=== PATIENT | female | born 1945 | race African-American/Black ===

== ENCOUNTER 2016-08-01 08:28 | Inpatient (IN) | payer MEDICARE ==
[~2016-08-01] VITALS: Ht 182.9 cm; Wt 113.4 kg
[~2016-08-01 08:28] MED LIST: AMIODARONE HCL100 MG ORAL; AMIODARONE HCL400 M1 ORAL; BENAZEPRIL HCL40 MG ORAL; BENAZEPRIL HCL40 MG PO; FLOMAX0.4 MG ORAL; LASIX40 MG ORAL; LEVEMIR100 UNIT/1 SQ; METFORMIN HCL850 M1 PO; METOPROLOL TART50 M1 ORAL; NORCO 5-325 TA1 EACH ORAL; WARFARIN SODIUM5 MG ORAL; WARFARIN SODIUM5 MG PO; XARELTO10 MG ORAL
[2016-08-01] MEDS ORDERED: METOPROLOL TART50 M1 ORAL (09:07)
[2016-08-01] MEDS ORDERED: LISINOPRIL20 MG ORAL (09:07)
--- NOTE | 2016-08-01 09:14 | Emergency Room Report ---
History of Present Illness General Chief Complaint: Lower Extremity Injury Source: Patient Present Illness HPI Patient presents with complaints of left foot redness and ulcer She reports that she is let the foot go to [facility] health nurse had seen the patient today and sent to the ER pain is 3/10 She has noticed increased discharge from the area Denies any knee pain or pelvic pain Unknown regarding fever Denies any chest pain or shortness of breath Patient does have a history of diabetes Allergies: Coded Allergies: No Known Allergies (Verified , 12/22/10) Patient History Past Medical History: see triage record Pertinent Family History: none Last Menstrual Period: na Now: No Reviewed Nursing Documentation: PMH: Agreed, PSxH: Agreed Nursing Documentation-PMH Past Medical History: No History, Except For Hx Cardiac Problems: Yes - PE, A fib Hx Hypertension: Yes Hx Pacemaker: Yes Hx Diabetes: Yes Hx Cancer: No Hx Gastrointestinal Problems: Yes Hx Neurological Problems: Yes Hx Peripheral Neuropathy: Yes Hx Numbness: Yes Review of Systems All Other Systems: negative except mentioned in HPI Physical Exam Vital Signs Date Time Temp Pulse Resp B/P Pulse Ox O2 Delivery O2 Flow Rate FiO2 08/01/16 08:35 98.8 68 18 138/83 98 Room Air Sp02 EP Interpretation: reviewed, normal General Appearance: well appearing, no apparent distress Head: normocephalic, atraumatic Eyes: bilateral eye EOMI, bilateral eye PERRL ENT: hearing grossly normal, normal pharynx, TMs + canals normal, uvula midline Neck: full range of motion, supple, no meningismus, no bony tend Respiratory: lungs clear, normal breath sounds, no rhonchi, no respiratory distress, no retraction, no accessory muscle use Cardiovascular #1: normal peripheral pulses, regular rate, rhythm, no edema, no gallop, no JVD, no murmur Gastrointestinal: normal bowel sounds, non tender, soft, no mass, no organomegaly, non-distended, no guarding, no hernia, no pulsatile mass, no rebound Genitourinary: no CVA tenderness Musculoskeletal: other - Swelling and erythema noted to the left foot, patient is able to flex and extend at that area Neurologic: oriented x3, responsive, vice president planning III-XII nml as tested, motor strength/ tone normal, sensory intact Psychiatric: mood/affect normal Skin: other - Erythema and swelling to the left foot, open wound is noted to the base of the large toe, pulses are intact Lymphatic: other - Swelling to left foot and left leg Medical Decision Making Diagnostic Impression: Primary Impression: Diabetic foot infection Additional Impression: Diabetic foot ulcer ER Course Patient has aggressive intervention initiated IV hydration antibiotics Baseline blood work at this time are appropriate x-ray imaging shows questionable concerning findings for ostium of his And patient is admitted for further inpatient care Labs Test 08/01/16 09:21 White Blood Count 9.5 K/UL (4.8-10.8) Red Blood Count 3.48 M/UL (4.20-5.40) Hemoglobin 10.3 G/DL (12.0-16.0) Hematocrit 32.0 % (37.0-47.0) Mean Corpuscular Volume 92 FL (80-99) Mean Corpuscular Hemoglobin 29.6 PG (27.0-31.0) Mean Corpuscular Hemoglobin Concent 32.2 G/DL (32.0-36.0) Red Cell Distribution Width 12.8 % (11.6-14.8) Platelet Count 228 K/UL (150-450) Mean Platelet Volume 6.1 FL (6.5-10.1) Neutrophils (%) (Auto) 69.4 % (45.0-75.0) Lymphocytes (%) (Auto) 18.7 % (20.0-45.0) Monocytes (%) (Auto) 9.1 % (1.0-10.0) Eosinophils (%) (Auto) 1.6 % (0.0-3.0) Basophils (%) (Auto) 1.2 % (0.0-2.0) Sodium Level 140 mEQ/L (135-145) Potassium Level 4.1 mEQ/L (3.4-4.9) Chloride Level 100 mEQ/L (98-107) Carbon Dioxide Level 24 mEQ/L (20-30) Anion Gap 16 (5-15) Blood Urea Nitrogen 12 mg/dL (7-23) Creatinine 0.9 mg/dL (0.5-0.9) Estimat Glomerular Filtration Rate > 60 mL/min (>60) Glucose Level 74 mg/dL (74-106) Lactic Acid Level 0.90 mmol/L (0.66-2.22) Calcium Level 8.5 mg/dL (8.6-10.2) Total Bilirubin 0.8 mg/dL (0.0-1.2) Aspartate Amino Transf (AST/SGOT) 13 U/L (5-40) Alanine Aminotransferase (ALT/SGPT) 6 U/L (3-33) Alkaline Phosphatase 93 U/L (35-104) Creatine Kinase MB < 1.5 ng/mL (< 3.8) Total Protein 7.3 g/dL (6.6-8.7) Albumin 3.0 g/dL (3.5-5.2) Globulin 4.3 g/dL Albumin/Globulin Ratio 0.6 (1.0-2.7) Rhythm Strip Diag. Results EP Interpretation: yes Rate: 77 Rhythm: NSR, no PVC's, no ectopy Other X-Ray Diagnostic Results Other X-Ray Diagnostic Results : EP Interpretation: Yes Findings: no fractures, no dislocation, other - Soft tissue changes, questionable osteo-, questionable gas Number of Views: 3 - left foot Last Vital Signs Date Time Temp Pulse Resp B/P Pulse Ox O2 Delivery O2 Flow Rate FiO2 08/01/16 08:35 98.8 68 18 138/83 98 Room Air Status: improved Disposition: ADMITTED INPATIENT Condition: Serious Referrals: ERIN GIFFORD (PCP) SOPHIA WILKINS D.O. Aug 01, 2016 09:14
[2016-08-01] MEDS ORDERED: Vancomycin 1.5gm/D5W 300ml 300 ML IVPB ONE (09:15)
[2016-08-01 09:47] LABS: BASOPHILS % (AUTO) 1.2 % (0.0-2.0); EOSINOPHILS % (AUTO) 1.6 % (0.0-3.0); LYMPHOCYTES % (AUTO) 18.7 % (20.0-45.0); MEAN CORPUSCULAR HEMOGLOBIN 29.6 PG (27.0-31.0); MEAN CORPUSCULAR HGB CONC 32.2 G/DL (32.0-36.0); MEAN CORPUSCULAR VOLUME 92 FL (80-99); MEAN PLATELET VOLUME 6.1 FL (6.5-10.1); MONOCYTES % (AUTO) 9.1 % (1.0-10.0); NEUTROPHILS % (AUTO) 69.4 % (45.0-75.0); PLATELET COUNT 228 K/UL (150-450); RED BLOOD COUNT 3.48 M/UL (4.20-5.40); RED CELL DISTRIBUTION WIDTH 12.8 % (11.6-14.8); WHITE BLOOD COUNT 9.5 K/UL (4.8-10.8)
[2016-08-01 10:02] LABS: ALANINE AMINOTRANSFERASE 6 U/L (3-33); ALBUMIN/GLOBULIN RATIO 0.6 (1.0-2.7); ANION GAP 16 (5-15); ASPARTATE AMINO TRANSFERASE 13 U/L (5-40); CALCIUM 8.5 mg/dL (8.6-10.2); CARBON DIOXIDE 24 mEQ/L (20-30); CHLORIDE 100 mEQ/L (98-107); CREATININE 0.9 mg/dL (0.5-0.9); GLOMERULAR FILTRATION RATE > 60 mL/min (>60); HEMOLYSIS 14; POTASSIUM 4.1 mEQ/L (3.4-4.9); SODIUM 140 mEQ/L (135-145); TOTAL PROTEIN 7.3 g/dL (6.6-8.7)
[2016-08-01 10:12] LABS: CKMB < 1.5 ng/mL (< 3.8)
[2016-08-01 11:00] VITALS: BP 130/76
[2016-08-01 13:24] VITALS: BP 128/77
[2016-08-01 15:18] VITALS: BP 129/77
[2016-08-01 18:00] LABS: INR 2.4 (0.9-1.1); PROTHROMBIN TIME 25.4 SEC (9.30-11.50)
[2016-08-01] MEDS: metFORMIN 500mg tab ORAL SCH (19:06)
[2016-08-01] MEDS: Cefepime HCl 1 GM in D5W 55 ML IVPB SCH (19:53)
[2016-08-01 20:00] VITALS: BP 120/50
[2016-08-01] MEDS: Warfarin Sodium 7.5mg ORAL SCH (21:25)
[2016-08-01] MEDS: Metoprolol 50mg tab ORAL SCH (21:26)
[2016-08-01] MEDS: NovoLOG Insulin Flexpen SUBQ SCH (21:28)
[2016-08-01] MEDS: Vancomycin 1gm/D5W 250ml IVPB SCH ×2 (22:28)
[2016-08-01] MEDS: metroNIDAZOLE 500mg tab ORAL SCH (22:28)
--- NOTE | 2016-08-01 22:31 | Consultation ---
Consult Note Consult Note Patient is a 71 year old female with diabetic neuropathy and left plantar hallux ulcer. Patient states a history of large callus tissue at the area which she attempted to trim off herself. This resulted in bleeding and she noted increasing drainage in the following days which prompted her to present to the emergency room. She reports no current nausea, vomiting, fevers, or chills. Assessment/Plan 1. Diabetic foot ulcer. Left hallux malodorous and infected ulcer which probes to bone 2. Diabetic neuropathy - Patient was consented and an excisional bedside debridement was performed to the level of bone using a 15 blade - Aerobic and anaerobic cultures were obtained - Ordering left foot MRI - Vascular labs pending - Non weight bearing left foot - Continue antibiotics - Will continue to follow daily Zhang Vargas DPM Aug 01, 2016 22:31
[2016-08-02] VITALS (7 sets, daily range): BP systolic 117–151; BP diastolic 60–122
[2016-08-02] MEDS: metroNIDAZOLE 500mg tab ORAL SCH ×3 (05:37→22:17)
[2016-08-02] MEDS: NovoLOG Insulin Flexpen SUBQ SCH ×4 (06:14→20:54)
--- NOTE | 2016-08-02 06:48 | Consultation ---
DATE OF CONSULTATION: 08/01/2016 CARDIOLOGY CONSULTATION CONSULTING PHYSICIAN: Aron Barone M.D. REQUESTING PHYSICIAN: Paul Bui M.D. REASON FOR CONSULTATION: Foot ulcer in the setting of cardiac arrhythmias. HISTORY OF PRESENT ILLNESS: This is a 71-year-old female, known to me from prior care, who self treated a callus on her left foot several days ago and noted persistent drainage, warmth, and redness over the subsequent days with moderate amount of drainage today. She was referred to the emergency room by her home health nurse and admitted for further management. PAST MEDICAL HISTORY: 1. Paroxysmal atrial fibrillation, status post AV gail ablation. 2. Permanent pacemaker. 3. Hypertensive heart disease. 4. Chronic diastolic congestive heart failure. 5. Insulin-requiring diabetes mellitus. 6. Diabetic neuropathy. 7. Chronic kidney disease. 8. History of DVT and pulmonary embolus. 9. Recent abnormal mammogram. MEDICATIONS: Prior to admission reviewed and reconciled. SOCIAL HISTORY: Nonsmoker. No alcohol or substance abuse. FAMILY HISTORY: Notable for colon cancer. REVIEW OF SYSTEMS: The patient had a mammogram last week at [facility]. The right upper quadrant had new calcifications for which a stereotactic biopsy has been requested. The patient had an AV gail ablation due to incessant atrial tachyarrhythmias. She has a permanent pacemaker and is pacemaker dependent. She has had prior myocardial perfusion scans that revealed less than 10% for flow-limiting coronary disease. She is on chronic anticoagulation for cardioembolic prophylaxis. PHYSICAL EXAMINATION: GENERAL: The patient is a well developed and well nourished, no acute distress. VITAL SIGNS: Afebrile, blood pressure 138/83, pulse 68, and respirations 18. HEENT: Conjunctivae are pink. Oropharynx is clear. Mucous membranes moist. NECK: Supple. No jugular venous distention. LUNGS: Clear. BREASTS: Without palpable masses. CARDIAC: Regular rhythm and rate. Normal S1, paradoxically split S2. A 1/6 systolic apical murmur. ABDOMEN: Soft and nontender. EXTREMITIES: There is 1+ dependent edema. The left foot has a large ulcer in the distal first toe. There is purulent smell and drainage noted. Both dorsalis pedis and posterior tibialis pulses are palpable. LABORATORY DATA: Albumin 3.0. Sodium 140, potassium 4.1, bicarbonate 24, BUN 12, and creatinine 0.9. White count 9.5 and hemoglobin 10.3. X-ray of the left foot with soft tissue changes and possible bony abnormality as well as gas. IMPRESSION: 1. Foot ulcer and cellulitis, possible gas-forming organism, possible osteomyelitis. 2. Paroxysmal atrial fibrillation. 3. Permanent pacemaker. 4. Atrioventricular gail ablation. 5. Hypertensive heart disease. 6. Chronic diastolic congestive heart failure. 7. Insulin-requiring diabetes mellitus. 8. Diabetic neuropathy. 9. Chronic kidney disease. PLAN: The patient has been pancultured and started on broad-spectrum antibiotics. Podiatry consultation is pending for today with the treatment anticipated. Further diagnostic studies to evaluate for osteomyelitis. We will follow likely a bone scan as the patient cannot have an MRI due to her pacemaker. Noninvasive vascular studies of the lower extremities have been requested as well. We will follow. Aron Barone M.D. DR: Alicja JOB#: [id number] CC:
[2016-08-02 07:06] LABS: INR 2.5 (0.9-1.1); PROTHROMBIN TIME 25.8 SEC (9.30-11.50)
[2016-08-02 07:19] LABS: BASOPHILS % (AUTO) 0.7 % (0.0-2.0); EOSINOPHILS % (AUTO) 3.7 % (0.0-3.0); MEAN CORPUSCULAR HEMOGLOBIN 29.4 PG (27.0-31.0); MEAN CORPUSCULAR HGB CONC 32.1 G/DL (32.0-36.0); MEAN CORPUSCULAR VOLUME 92 FL (80-99); MEAN PLATELET VOLUME 6.5 FL (6.5-10.1); MONOCYTES % (AUTO) 8.3 % (1.0-10.0); NEUTROPHILS % (AUTO) 74.3 % (45.0-75.0); PLATELET COUNT 223 K/UL (150-450); RED BLOOD COUNT 3.29 M/UL (4.20-5.40); WHITE BLOOD COUNT 7.4 K/UL (4.8-10.8)
[2016-08-02 07:26] LABS: ALANINE AMINOTRANSFERASE 5 U/L (3-33); ALBUMIN/GLOBULIN RATIO 0.7 (1.0-2.7); ANION GAP 16 (5-15); ASPARTATE AMINO TRANSFERASE 12 U/L (5-40); CALCIUM 8.3 mg/dL (8.6-10.2); CARBON DIOXIDE 23 mEQ/L (20-30); CHLORIDE 101 mEQ/L (98-107); CREATININE 0.8 mg/dL (0.5-0.9); GLOMERULAR FILTRATION RATE > 60 mL/min (>60); HEMOLYSIS 2; MAGNESIUM 1.8 mg/dL (1.7-2.5); POTASSIUM 4.1 mEQ/L (3.4-4.9); SODIUM 140 mEQ/L (135-145); TOTAL PROTEIN 6.9 g/dL (6.6-8.7)
[2016-08-02] MEDS: Cefepime HCl 1 GM in D5W 55 ML IVPB SCH ×2 (09:14→20:54)
[2016-08-02] MEDS: metFORMIN 500mg tab ORAL SCH ×2 (09:14→18:08)
[2016-08-02] MEDS: Metoprolol 50mg tab ORAL SCH ×2 (09:15→20:53)
[2016-08-02] MEDS: Lisinopril 20mg tab ORAL SCH (09:15)
[2016-08-02] MEDS: Lactobacillus-GG tablet ORAL SCH ×3 (09:15→18:08)
[2016-08-02] MEDS: Vancomycin 1gm/D5W 250ml IVPB SCH ×4 (10:17→22:17)
[2016-08-02] MEDS ORDERED: NS 55ml IV ONE (16:07)
[2016-08-02] MEDS ORDERED: Tubing IV Secondary IV ONE (17:42)
[2016-08-02] MEDS: Warfarin Sodium 7.5mg ORAL SCH (18:08)
--- NOTE | 2016-08-02 19:07 | Consultation ---
DATE OF CONSULTATION: 08/02/2016 INFECTIOUS DISEASE CONSULTATION REFERRING PHYSICIAN: Aron Barone M.D. REASON FOR CONSULTATION: Diabetic foot ulcer. HISTORY OF PRESENTING ILLNESS: This is a 71-year-old lady with history of diabetes, hypertension and pacemaker placement who came in with left foot redness and ulcer on the plantar aspect with increasing drainage. She was seen by Podiatry and was to have found infected ulcer, which probes to the bone. An Infectious Diseases consultation has been obtained for antibiotics. PAST MEDICAL HISTORY: 1. History of diabetes. 2. History of hypertension. 3. Congestive heart failure. 4. Status post permanent pacemaker placement. 5. Atrial fibrillation status post ablation. 6. Diabetic neuropathy. 7. DVT. 8. Pulmonary embolism. MEDICATIONS: As an inpatient, the patient is on Tylenol, lisinopril, Lactobacillus, vancomycin, Flagyl, metoprolol, insulin, warfarin, cefepime and metformin. ALLERGIES: No known drug allergies. SOCIAL HISTORY: No history of smoking, alcohol, or drug use. FAMILY HISTORY: Notable for colon cancer. REVIEW OF SYSTEMS: Respiratory: No fever, chills, cough, shortness of breath, or chest pain. Cardiac: No chest pain. No palpitations. No dizziness. No syncope. Gastrointestinal: No nausea. No vomiting. No abdominal pain or diarrhea. Musculoskeletal: She denies any left foot pain, but has increasing drainage. PHYSICAL EXAMINATION: VITAL SIGNS: Temperature of 99.1 degrees, T-max of 99.1 degrees, pulse of 71, respiratory rate 15, blood pressure 122/60 and O2 saturation of 98%. HEENT: Pupils are equally reactive to light and accommodation. Mouth appears clean without thrush. NECK: Supple. No adenopathy. No JVD. CARDIOVASCULAR: Regular rate and rhythm. No murmurs. LUNGS: Clear to auscultation bilaterally. No crackles. No wheezes. ABDOMEN: Soft and nontender. No organomegaly. EXTREMITIES: No cyanosis. No clubbing. Edema noted bilaterally. The left foot plantar ulcer noted. LABORATORY AND DIAGNOSTIC DATA: White count 7.4, hemoglobin 9.7, hematocrit 30.2, MCV 92, and platelet count of 233,000 with neutrophils of 74%. Sodium 140, potassium 4.1, chloride 101, bicarbonate 23, BUN 12, creatinine 0.8 and glucose 123. Calcium 8.3. Total bilirubin 0.6. AST 12, ALT 5 and alkaline phosphatase 100. Total protein 6.9. Albumin of 3.9. Wound cultures are pending. MRI has been ordered. ASSESSMENT: 1. This is a 71-year-old lady with history of diabetes and hypertension, who comes in with a left foot ulcer with drainage with a probe going deep to the bone, would be concern regarding underlying osteomyelitis. 2. Atrial fibrillation. 3. Diabetes. PLAN: 1. Continue vancomycin and Flagyl. 2. Continue cefepime. 3. We will follow up cultures and adjust antibiotics accordingly. I would like to thank, Dr. Aron Barone, for this consultation. Riky Shaikh M.D. DR: GAUTAM JOB#: [id number] CC: Aron Barone M.D.
--- NOTE | 2016-08-02 20:28 | Consultation ---
DATE OF CONSULTATION: 08/01/2016 PODIATRY CONSULTATION CONSULTING PHYSICIAN: Zhang Vargas D.P.M. covering from Chaz Lira D.P.M. REQUESTING PHYSICIAN: Paul Bui M.D. REASON FOR CONSULTATION: Infected left foot ulcer. HISTORY OF PRESENT ILLNESS: The patient is a 71-year-old female with diabetic neuropathy and left plantar hallux ulcer. The patient has history of large callus tissue at the area which she attempted to trim off herself, this resulted in bleeding and she noted increased drainage in the following days which prompted her to present to the emergency room. She reports no current nausea, vomiting, fever, or chills. PAST MEDICAL HISTORY: 1. Diabetic neuropathy. 2. Diabetes. 3. Chronic kidney disease. 4. Atrial fibrillation. 5. Hypertension. 6. History of pulmonary embolism and deep venous thrombosis. 7. Congestive heart failure. ANTIBIOTICS: Vancomycin, metronidazole, cefepime. SOCIAL HISTORY: The patient does not smoke or drink alcohol. FAMILY HISTORY: Notable for colon cancer. PHYSICAL EXAMINATION: VITAL SIGNS: On 08/01/2016, temperature 98.4 degrees, pulse 69, respiratory rate 16, blood pressure 130/76, O2 saturation 99% on room air. DERMATOLOGICAL: Left plantar hallux with full thickness foot ulcer. Malodor present. The wound probes proximally and laterally and communicates with a second wound on the lateral aspect of the hallux. Abscess formation, probes to bone, surrounding erythema and edema. Right foot with callus formation of the plantar hallux and first metatarsal head. NEUROLOGIC: Decreased sensation to light touch. VASCULAR: Left foot with erythema and edema at the forefoot. Pedal pulses are lightly palpable. MUSCULOSKELETAL: Full muscle strength noted. LABORATORY AND DIAGNOSTIC DATA: On 08/01/2016, white blood count of 9.5, red blood cell count 3.48, hemoglobin 10.3, and hematocrit 32.0, and neutrophils 69.4. ASSESSMENT: 1. Left foot cellulitis secondary to left hallux malodorous and infected ulcer which probes the bone. 2. Diabetic neuropathy. 3. Chronic kidney disease. 4. Congestive heart failure. 5. Atrial fibrillation. 6. Hypertension. 7. History of deep venous thrombosis and pulmonary embolism. PLAN: 1. The patient was consented and bedside excisional wound debridement was performed to the level of bone using 15-blade. 2. Aerobic and anaerobic cultures were obtained. 3. Ordering bone scan. 4. Vascular labs are pending. Followup results. 5. Nonweightbearing left foot. 6. Continue IV antibiotics. We will continue to follow daily. Zhang Vargas DPM DR: Nora JOB#: [id number] CC: KOLBY
--- NOTE | 2016-08-02 21:38 | Podiatric Progress Note ---
Assessment/Plan Patient Faith White is a 71 year old female who was admitted on Aug 01, 2016 at 09: 41 with left foot infected ulcer Problems: (1) Diabetic foot infection (2) Osteomyelitis of ankle or foot, acute (3) Diabetic foot ulcer Assessment/Plan Assessment: 1. Left foot infected ulcer that probes to bone. Patient is afebrile and without leukocytosis 2. diabetic neuropathy Plan: 1. Patient is one day status post bedside debridement. There is some improvement in the erythema and edema at the hallux 2. Bone scan is ordered 3. Cultures obtained yesterday. Will follow up final results 4. Continue antibiotics per infectious disease specialist recommendations 5. Non weight bearing on left foot Subjective Reason for consult Left hallux infected ulcer Allergies: Coded Allergies: No Known Allergies (Verified , 12/22/10) Subjective Patient states she is doing well with no pain, nausea, vomiting, fevers, or chills. Objective Exam Last 24 Hour Vital Signs Date Time Temp Pulse Resp B/P Pulse Ox O2 Delivery O2 Flow Rate FiO2 08/02/16 20:53 72 140/83 08/02/16 19:00 97.3 72 20 140/83 98 Room Air 08/02/16 16:00 97.2 70 20 148/82 99 Room Air 08/02/16 12:00 98.1 79 16 151/95 97 Room Air 08/02/16 09:15 71 122/60 08/02/16 09:15 122/60 08/02/16 07:45 99.1 71 15 122/60 98 Room Air 08/02/16 04:00 98.2 90 18 117/72 98 Room Air 08/02/16 00:00 97.6 70 18 150/84 99 Room Air Laboratory Tests Test 08/02/16 05:15 08/02/16 20:55 White Blood Count 7.4 K/UL (4.8-10.8) Red Blood Count 3.29 M/UL (4.20-5.40) L Hemoglobin 9.7 G/DL (12.0-16.0) L Hematocrit 30.2 % (37.0-47.0) L Mean Corpuscular Volume 92 FL (80-99) Mean Corpuscular Hemoglobin 29.4 PG (27.0-31.0) Mean Corpuscular Hemoglobin Concent 32.1 G/DL (32.0-36.0) Red Cell Distribution Width 13.0 % (11.6-14.8) Platelet Count 223 K/UL (150-450) Mean Platelet Volume 6.5 FL (6.5-10.1) Neutrophils (%) (Auto) 74.3 % (45.0-75.0) Lymphocytes (%) (Auto) 13.0 % (20.0-45.0) L Monocytes (%) (Auto) 8.3 % (1.0-10.0) Eosinophils (%) (Auto) 3.7 % (0.0-3.0) H Basophils (%) (Auto) 0.7 % (0.0-2.0) Prothrombin Time 25.8 SEC (9.30-11.50) H Prothromb Time International Ratio 2.5 (0.9-1.1) H Sodium Level 140 mEQ/L (135-145) Potassium Level 4.1 mEQ/L (3.4-4.9) Chloride Level 101 mEQ/L (98-107) Carbon Dioxide Level 23 mEQ/L (20-30) Anion Gap 16 (5-15) H Blood Urea Nitrogen 12 mg/dL (7-23) Creatinine 0.8 mg/dL (0.5-0.9) Estimat Glomerular Filtration Rate > 60 mL/min (>60) Glucose Level 123 mg/dL (74-106) H Calcium Level 8.3 mg/dL (8.6-10.2) L Magnesium Level 1.8 mg/dL (1.7-2.5) Total Bilirubin 0.6 mg/dL (0.0-1.2) Aspartate Amino Transf (AST/SGOT) 12 U/L (5-40) Alanine Aminotransferase (ALT/SGPT) 5 U/L (3-33) Alkaline Phosphatase 100 U/L (35-104) Total Protein 6.9 g/dL (6.6-8.7) Albumin 3.0 g/dL (3.5-5.2) L Globulin 3.9 g/dL Albumin/Globulin Ratio 0.7 (1.0-2.7) L Thyroid Stimulating Hormone (TSH) 2.120 uIU/mL (0.300-4.500) Vancomycin Level Trough Pending Microbiology Date/Time Source Procedure Growth Status 08/01/16 23:00 Foot Left Gram Stain - Final Resulted 08/01/16 23:00 Foot Left Wound Culture Pending Resulted Exam Narrative Left plantar hallux ulcer with mild improvement in erythema and edema surrounding the wound. No purulence or malodor noted today. Wound probes to bone. Dermatological Wound Assessment : Exudate Amount: Scant Zhang Vargas DPM Aug 02, 2016 21:38
--- NOTE | 2016-08-02 23:47 | History and Physical Report ---
DATE OF ADMISSION: 08/01/2016 CHIEF COMPLAINT: Left foot osteomyelitis. HISTORY OF PRESENT ILLNESS: The patient is a very pleasant 71-year-old female, well known to me. She has a history of hypertension, diabetes, conduction system disease status post pacemaker, diastolic congestive heart failure, history of DVT and PE. She presented with complaints of left foot pain. According to the patient, she has a history of a callus on the left foot. Four days prior to admission, the callus started to tear off and she eventually cut the rest of the callus off. There is a large wound on the bottom of the foot. It became painful and she presented to the emergency room, there she was diagnosed with a diabetic ulcer and wound infection. She has been started on IV antibiotic therapy and is now admitted for further evaluation and care. PAST MEDICAL HISTORY: As above. PAST SURGICAL HISTORY: Includes a history of pacemaker. CURRENT MEDICATIONS: Reconciled and reviewed. ALLERGIES: None. SOCIAL HISTORY: Negative for tobacco, ethanol, or drugs. FAMILY HISTORY: None. REVIEW OF SYSTEMS: General: No fever or chills. HEENT: No headaches or visual changes. Cardiopulmonary: No chest pain or shortness of breath. Gastrointestinal: No nausea or vomiting. Genitourinary: No urgency or frequency. Musculoskeletal: No joint pain or swelling. Neurologic: No evidence of seizures. PHYSICAL EXAMINATION: VITAL SIGNS: Temperature is 98 degrees, blood pressure 136/70, pulse of 80, respirations 20. GENERAL: The patient is a well-developed female no apparent distress. HEART: Regular rate and rhythm. LUNGS: Clear. ABDOMEN: Soft, nontender, nondistended. EXTREMITIES: Without clubbing, cyanosis. Left foot, at the base has a ulceration about 3 cm. It is warm and red. There is some purulent discharge noted. LABORATORY DATA: White count was 10, hemoglobin 10, and hematocrit 32, platelets 228,000. INR was 2.5 Sodium 140, potassium 4.1, BUN 12, creatinine 0.9. ASSESSMENT: This is a pleasant female admitted with diabetic foot ulcer. 1. Diabetic foot ulcer. 2. History of congestive heart failure. 3. Hypertension. 4. Diabetes. 5. Conduction system disease status post pacemaker. 6. Pulmonary embolism. 7. Deep venous thrombosis. PLAN: 1. Intravenous antibiotics. 2. Followup cultures. 3. Check a bone scan to rule out osteomyelitis. 4. ID, Cardiology, and Podiatry consultation to be obtained. Paul Bui M.D. DR: Ambika JOB#: [id number] CC:
[2016-08-03] VITALS: BP 130/77
[2016-08-03 04:00] VITALS: BP 136/78
--- NOTE | 2016-08-03 04:37 | Progress Note ---
DATE: 08/02/2016 CARDIOLOGY PROGRESS NOTE SUBJECTIVE: The patient has no pain. Her foot remains with dressing in place and status post debridement yesterday. The patient has a pacemaker. She could not have an MRI performed to evaluate for osteomyelitis. OBJECTIVE: VITAL SIGNS: Blood pressure 148/82, pulse 70, respirations 20, and afebrile. NECK: Supple. LUNGS: Clear. CARDIAC: Regular rhythm and rate. Normal S1, paradoxically split S2. A 1/6 systolic murmur at apex. ABDOMEN: Soft and nontender. EXTREMITIES: With trace edema. Left foot dressing in place. IMPRESSION: 1. Diabetic foot ulcer, microvascular peripheral artery disease. 2. Atrioventricular gail ablation. 3. Paroxysmal atrial fibrillation. 4. Permanent pacemaker with pacemaker dependency. 5. Warfarin-associated coagulopathy. 6. Insulin-requiring diabetes mellitus. PLAN: 1. Followup noninvasive vascular study. 2. Continue antibiotics and wound care. 3. Bone scan will be considered to evaluate for osteomyelitis. 4. Warfarin to INR of 2 to 3. 5. Continue current cardiovascular regimen otherwise without change. Aron Barone M.D. DR: FREDI JOB#: [id number] CC:
[2016-08-03] MEDS: metroNIDAZOLE 500mg tab ORAL SCH ×3 (06:31→22:48)
[2016-08-03] MEDS: NovoLOG Insulin Flexpen SUBQ SCH ×4 (06:33→21:51)
[2016-08-03 07:05] LABS: INR 2.6 (0.9-1.1); PROTHROMBIN TIME 27.7 SEC (9.30-11.50)
[2016-08-03 08:09] VITALS: BP 135/76
--- NOTE | 2016-08-03 08:30 | Diagnostic Imaging Report ---
Indications: Left foot pain, infection, diabetes Technique: 3 views left foot Findings: Comparison: None Soft tissues of the hallux are swollen with gas-filled defect in its plantar aspect. No underlying fracture, dislocation, lytic destruction, periosteal reaction, or other acute changes are identified. Solid, multilobulated periosteal new bone formation is present along the diaphyses of multiple metatarsals. Prominent spurs emanate from the plantar and posterior aspects of the calcaneus in from the dorsal margins of the mid tarsal and tarsometatarsal joints. IMPRESSION: Left hallux soft tissue swelling with ulcer. No evidence of underlying osteomyelitis. Early osteomyelitis may be radiographically occult, however. MRI or nuclear medicine three-phase bone scan should be considered for more sensitive evaluation. Chronic appearing periosteal new bone formation multiple metatarsal diaphyses, nonspecific, may be secondary to chronic biomechanical stresses or reactive to chronic inflammation. Calcaneal enthesophytes Mid tarsal and tarsometatarsal degenerative arthropathy
[2016-08-03] MEDS: Lactobacillus-GG tablet ORAL SCH ×3 (09:01→18:23)
[2016-08-03] MEDS: metFORMIN 500mg tab ORAL SCH ×2 (09:01→18:23)
[2016-08-03] MEDS: Cefepime HCl 1 GM in D5W 55 ML IVPB SCH ×2 (09:02→21:49)
[2016-08-03] MEDS: Lisinopril 20mg tab ORAL SCH (09:02)
[2016-08-03] MEDS: Metoprolol 50mg tab ORAL SCH ×2 (09:02→21:59)
--- NOTE | 2016-08-03 10:45 | General Progress Note ---
Assessment/Plan Problem List: (1) Atrial fibrillation ICD Codes: I48.91 - Unspecified atrial fibrillation SNOMED: 55527584 (2) Diabetic foot infection ICD Codes: E11.69 - Type 2 diabetes mellitus with other specified complication ; L08.9 - Local infection of the skin and subcutaneous tissue, unspecified SNOMED: 377966730, 26414304 (3) Diabetic foot ulcer ICD Codes: E11.621 - Type 2 diabetes mellitus with foot ulcer; L97.509 - Non- pressure chronic ulcer of other part of unspecified foot with unspecified severity SNOMED: 916470814, [id number] Status: stable, progressing Assessment/Plan iv abx follow up cultures follow up bone scan. wound care cont cardiac rx Subjective ROS Limited/Unobtainable: No Constitutional: Reports: no symptoms HEENT: Reports: no symptoms Cardiovascular: Reports: no symptoms Respiratory: Reports: no symptoms Gastrointestinal/Abdominal: Reports: no symptoms Genitourinary: Reports: no symptoms Neurologic/Psychiatric: Reports: no symptoms Endocrine: Reports: no symptoms Hematologic/Lymphatic: Reports: no symptoms Allergies: Coded Allergies: No Known Allergies (Verified , 12/22/10) All Systems: reviewed and negative except above Subjective no events. w/o complaints. denies pain. on iv abx. bone scan completed. no results back yet Objective Last 24 Hour Vital Signs Date Time Temp Pulse Resp B/P Pulse Ox O2 Delivery O2 Flow Rate FiO2 08/03/16 09:02 70 135/76 08/03/16 09:02 135/76 08/03/16 08:09 98.2 70 16 135/76 99 Nasal Cannula 08/03/16 04:00 97.7 70 20 136/78 98 Room Air 08/03/16 00:00 97.3 70 20 130/77 98 Room Air 08/02/16 20:53 72 140/83 08/02/16 19:00 97.3 72 20 140/83 98 Room Air 08/02/16 16:00 97.2 70 20 148/82 99 Room Air 08/02/16 12:00 98.1 79 16 151/95 97 Room Air Intake and Output 08/02/16 08/03/16 19:00 07:00 Intake Total 1405 ml 240 ml Balance 1405 ml 240 ml Intake Oral 1100 ml 240 ml IV Total 305 ml # Voids 2 7 Laboratory Tests 08/02/16 20:55: Vancomycin Level Trough 12.3H 08/03/16 06:00: Prothrombin Time 27.7H, Prothromb Time International Ratio 2.6H Height (Feet): 6 Height (Inches): 0.00 Weight (Pounds): 250 General Appearance: WD/WN, alert Neck: supple Cardiovascular: regular rhythm Respiratory/Chest: lungs clear Abdomen: normal bowel sounds, non tender, soft, no organomegaly Edema: no edema noted Arm (L), no edema noted Arm (R), no edema noted Leg (L), no edema noted Leg (R), no edema noted Pedal (L), no edema noted Pedal (R), no edema noted 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
--- NOTE | 2016-08-03 11:35 | Infectious Diseases Prog Note ---
"Assessment/Plan Assessment/Plan antibiotics : vancomycin iv, cefepime, flagyl A 1. left foot ulcer with gram negative rods | likely osteomyelitis 2. DM 3. HTN P 1. continue vancomycin iv, cefepime, flagyl 2. will follow up cultures, bone scan Subjective Constitutional: Denies: chills, fever Respiratory: Denies: dry cough, shortness of breath Gastrointestinal/Abdominal: Denies: diarrhea, nausea, vomiting Musculoskeletal: Denies: pain Allergies: Coded Allergies: No Known Allergies (Verified , 12/22/10) Objective Vital Signs Last 24 Hour Vital Signs Date Time Temp Pulse Resp B/P Pulse Ox O2 Delivery O2 Flow Rate FiO2 08/03/16 09:02 70 135/76 08/03/16 09:02 135/76 08/03/16 08:09 98.2 70 16 135/76 99 Nasal Cannula 08/03/16 04:00 97.7 70 20 136/78 98 Room Air 08/03/16 00:00 97.3 70 20 130/77 98 Room Air 08/02/16 20:53 72 140/83 08/02/16 19:00 97.3 72 20 140/83 98 Room Air 08/02/16 16:00 97.2 70 20 148/82 99 Room Air 08/02/16 12:00 98.1 79 16 151/95 97 Room Air Height (Feet): 6 Height (Inches): 0.00 Weight (Pounds): 250 Respiratory/Chest: lungs clear Cardiovascular: normal rate, regular rhythm, no gallop/murmur Abdomen: soft, non tender Extremities: no edema, other - left foot plantar ulcer Microbiology Date/Time Source Procedure Growth Status 08/01/16 09:21 Blood Blood Culture - Preliminary NO GROWTH AFTER 24 HOURS Resulted 08/01/16 09:21 Blood Blood Culture - Preliminary NO GROWTH AFTER 24 HOURS Resulted 08/01/16 23:00 Foot Left Gram Stain - Final Resulted 08/01/16 23:00 Wound Culture - Preliminary Gram Negative Bacillus 1 Resulted Laboratory Tests Test 08/02/16 20:55 08/03/16 06:00 Vancomycin Level Trough 12.3 ug/mL (5.0-12.0) H Prothrombin Time 27.7 SEC (9.30-11.50) H Prothromb Time International Ratio 2.6 (0.9-1.1) H LISA BERNARD Aug 03, 2016 11:35"
[2016-08-03 11:54] VITALS: BP 146/83
--- NOTE | 2016-08-03 12:05 | Diagnostic Imaging Report ---
Indications: Diabetic ulcer plantar surface left hallux Technique: 21.3 mCi 99M technetium-MDP administered intravenously. Planar imaging of the distal legs and feet performed in immediate serial blood flow, immediate static blood pool (multi-planar), and 3 hour delayed (multiplanar) phases. Findings: Comparison: Left foot radiographs 08/01/2016 Blood flow, pool, and delayed images demonstrate diffusely increased activity throughout the distal aspect of left leg and left foot with superimposed focal increased activity in the left hallux. On delayed images, this localizes throughout the left first distal and proximal phalanges, head of left first metatarsal. Small focus of mildly increased activity is present in the left fifth toe on delayed imaging with only questionable increased activity on blood pool and no obvious focal hyperemia on blood flow images. IMPRESSION: Findings compatible with acute osteomyelitis involving the left first metatarsal head, entire left first proximal and distal phalanges Mild focal increased activity left fifth toe on delayed imaging, may be degenerative. Correlate clinically.
[2016-08-03] MEDS: Vancomycin 1gm/D5W 250ml IVPB SCH ×4 (12:15→22:48)
--- NOTE | 2016-08-03 13:50 | Podiatric Progress Note ---
Assessment/Plan Patient Faith White is a 71 year old female who was admitted on Aug 01, 2016 at 09: 41 with left foot infected ulcer and cellulitis Problems: (1) Osteomyelitis of ankle or foot, acute (2) Diabetic foot infection (3) Diabetic foot ulcer Assessment/Plan - Discussed surgical intervention with the patient. She is not amenable at this time - Continue 6 weeks of IV antibiotics and local wound care. Culture growing gram negative bacillus - Start packing the wound with 1/4 inch packing gauze, cover with adaptic, 4x4 gauze, and jeffrey - Non weight bearing on left forefoot. Okay for patient to walk on heel. Will need offloaded diabetic shoe as an outpatient Subjective Reason for consult Left hallux infected ulcer and cellulitis Allergies: Coded Allergies: No Known Allergies (Verified , 12/22/10) Subjective Patient states she feels well with no reports of nausea, vomiting, fevers, or chills Objective Exam Last 24 Hour Vital Signs Date Time Temp Pulse Resp B/P Pulse Ox O2 Delivery O2 Flow Rate FiO2 08/03/16 11:54 97.5 71 15 146/83 97 Room Air 08/03/16 09:02 70 135/76 08/03/16 09:02 135/76 08/03/16 08:09 98.2 70 16 135/76 99 Nasal Cannula 08/03/16 04:00 97.7 70 20 136/78 98 Room Air 08/03/16 00:00 97.3 70 20 130/77 98 Room Air 08/02/16 20:53 72 140/83 08/02/16 19:00 97.3 72 20 140/83 98 Room Air 08/02/16 16:00 97.2 70 20 148/82 99 Room Air Laboratory Tests Test 08/02/16 20:55 08/03/16 06:00 Vancomycin Level Trough 12.3 ug/mL (5.0-12.0) H Prothrombin Time 27.7 SEC (9.30-11.50) H Prothromb Time International Ratio 2.6 (0.9-1.1) H Microbiology Date/Time Source Procedure Growth Status 08/01/16 09:21 Blood Blood Culture - Preliminary NO GROWTH AFTER 24 HOURS Resulted 08/01/16 23:00 Foot Left Gram Stain - Final Resulted 08/01/16 23:00 Wound Culture - Preliminary Gram Negative Bacillus 1 Resulted Exam Narrative Left hallux with improving erythema and edema. Patient's ulcer probes to bone as well as proximally and laterally. The lateral aspect of the wound tunnels to another small wound on the lateral side of the hallux. Draining moderate amounts of serosanguinous drainage. Malodor still present but it has improved since admission. BONE SCAN 08/03/15: Procedure: NM Bone Scan 3-Phase Indications: Diabetic ulcer plantar surface left hallux Technique: 21.3 mCi 99M technetium-MDP administered intravenously. Planar imaging of the distal legs and feet performed in immediate serial blood flow, immediate static blood pool (multi-planar), and 3 hour delayed (multiplanar) phases. Findings: Comparison: Left foot radiographs 08/01/2016 Blood flow, pool, and delayed images demonstrate diffusely increased activity throughout the distal aspect of left leg and left foot with superimposed focal increased activity in the left hallux. On delayed images, this localizes throughout the left first distal and proximal phalanges, head of left first metatarsal. Small focus of mildly increased activity is present in the left fifth toe on delayed imaging with only questionable increased activity on blood pool and no obvious focal hyperemia on blood flow images. IMPRESSION: Findings compatible with acute osteomyelitis involving the left first metatarsal head, entire left first proximal and distal phalanges Mild focal increased activity left fifth toe on delayed imaging, may be degenerative. Correlate clinically. Zhang Vargas DPM Aug 03, 2016 13:50
[2016-08-03 16:42] VITALS: BP 136/65
[2016-08-03] MEDS: Warfarin Sodium 7.5mg ORAL SCH (18:31)
[2016-08-03 20:00] VITALS: BP 149/79
[2016-08-04] VITALS: BP 132/74
[2016-08-04 04:00] VITALS: BP 145/79
[2016-08-04] MEDS: metroNIDAZOLE 500mg tab ORAL SCH ×3 (06:14→22:13)
[2016-08-04] MEDS: NovoLOG Insulin Flexpen SUBQ SCH ×4 (06:18→21:00)
--- NOTE | 2016-08-04 07:26 | General Progress Note ---
Assessment/Plan Problem List: (1) Atrial fibrillation ICD Codes: I48.91 - Unspecified atrial fibrillation SNOMED: [id number] (2) Diabetic foot infection ICD Codes: E11.69 - Type 2 diabetes mellitus with other specified complication ; L08.9 - Local infection of the skin and subcutaneous tissue, unspecified SNOMED: 199589484, 67681119 (3) Diabetic foot ulcer ICD Codes: E11.621 - Type 2 diabetes mellitus with foot ulcer; L97.509 - Non- pressure chronic ulcer of other part of unspecified foot with unspecified severity SNOMED: 762238151, 08612337 Status: stable, progressing Assessment/Plan iv abx per ID follow up cultures picc line wound care cont cardiac rx Subjective ROS Limited/Unobtainable: No Constitutional: Reports: no symptoms HEENT: Reports: no symptoms Cardiovascular: Reports: no symptoms Respiratory: Reports: no symptoms Gastrointestinal/Abdominal: Reports: no symptoms Genitourinary: Reports: no symptoms Neurologic/Psychiatric: Reports: no symptoms Endocrine: Reports: no symptoms Hematologic/Lymphatic: Reports: no symptoms Allergies: Coded Allergies: No Known Allergies (Verified , 12/22/10) All Systems: reviewed and negative except above Subjective no events. w/o complaints. denies pain. on iv abx. bone scan positive for osteomyelitis Objective Last 24 Hour Vital Signs Date Time Temp Pulse Resp B/P Pulse Ox O2 Delivery O2 Flow Rate FiO2 08/04/16 04:00 97.7 70 20 145/79 97 Room Air 08/04/16 00:00 97.9 70 20 132/74 98 Room Air 08/03/16 21:59 71 149/79 08/03/16 20:00 97.5 71 17 149/79 98 Room Air 08/03/16 16:42 98.2 70 14 136/65 98 Room Air 08/03/16 11:54 97.5 71 15 146/83 97 Room Air 08/03/16 09:02 70 135/76 08/03/16 09:02 135/76 08/03/16 08:09 98.2 70 16 135/76 99 Nasal Cannula Intake and Output 08/03/16 08/04/16 19:00 07:00 Intake Total 1905 ml 935 ml Balance 1905 ml 935 ml Intake Oral 1600 ml 630 ml IV Total 305 ml 305 ml # Voids 4 4 # Bowel Movements 1 Laboratory Tests 1/15/17 04:55: Prothrombin Time [Pending], Prothromb Time International Ratio [Pending] Height (Feet): 6 Height (Inches): 0.00 Weight (Pounds): 250 Objective General Appearance: WD/WN, alert Neck: supple Cardiovascular: regular rhythm Respiratory/Chest: lungs clear Abdomen: normal bowel sounds, non tender, soft, no organomegaly Edema: no edema noted Arm (L), no edema noted Arm (R), no edema noted Leg (L), no edema noted Leg (R), no edema noted Pedal (L), no edema noted Pedal (R), no edema noted 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
[2016-08-04 08:01] VITALS: BP 151/79
[2016-08-04] MEDS: Lisinopril 20mg tab ORAL SCH (08:05)
[2016-08-04] MEDS: Metoprolol 50mg tab ORAL SCH ×2 (08:05→22:13)
[2016-08-04] MEDS: Lactobacillus-GG tablet ORAL SCH ×3 (08:06→17:10)
[2016-08-04] MEDS: metFORMIN 500mg tab ORAL SCH ×2 (08:06→17:10)
[2016-08-04] MEDS: Cefepime HCl 1 GM in D5W 55 ML IVPB SCH (08:06)
[2016-08-04 08:35] LABS: INR 2.8 (0.9-1.1); PROTHROMBIN TIME 29.8 SEC (9.30-11.50)
[2016-08-04] MEDS: Vancomycin 1gm/D5W 250ml IVPB SCH ×4 (10:07→22:13)
--- NOTE | 2016-08-04 10:19 | Infectious Diseases Prog Note ---
Assessment/Plan Assessment/Plan A: Osteomyelitis of first left metatarsal DM HPN Anemia P: continue Vancomycin & Flagyl change Cefepime to Rocephin Subjective ROS Limited/Unobtainable: No Respiratory: Reports: no symptoms Cardiovascular: Reports: no symptoms Genitourinary: Reports: no symptoms Musculoskeletal: Reports: no symptoms Allergies: Coded Allergies: No Known Allergies (Verified , 12/22/10) Objective Vital Signs Last 24 Hour Vital Signs Date Time Temp Pulse Resp B/P Pulse Ox O2 Delivery O2 Flow Rate FiO2 08/04/16 08:05 70 151/79 08/04/16 08:05 151/79 08/04/16 08:01 97.7 70 14 151/79 100 Room Air 08/04/16 04:00 97.7 70 20 145/79 97 Room Air 08/04/16 00:00 97.9 70 20 132/74 98 Room Air 08/03/16 21:59 71 149/79 08/03/16 20:00 97.5 71 17 149/79 98 Room Air 08/03/16 16:42 98.2 70 14 136/65 98 Room Air 08/03/16 11:54 97.5 71 15 146/83 97 Room Air Height (Feet): 6 Height (Inches): 0.00 Weight (Pounds): 250 General Appearance: no acute distress HEENT: mucous membranes moist Respiratory/Chest: lungs clear Cardiovascular: normal rate Abdomen: soft, non tender Extremities: no edema Skin: ulcers, other - left big toe, foul smelling Neurologic/Psychiatric: alert, oriented x 3, responsive Microbiology Date/Time Source Procedure Growth Status 08/01/16 23:00 Foot Left Gram Stain - Final Resulted 08/01/16 23:00 Wound Culture - Preliminary Proteus Mirabilis Staphylococcus Sp Coag Neg Resulted Laboratory Tests Test 08/04/16 04:55 Prothrombin Time 29.8 SEC (9.30-11.50) H Prothromb Time International Ratio 2.8 (0.9-1.1) H Current Medications Medications (Trade) Dose Ordered Sig/Kaden Route PRN Reason Start Time Stop Time Status Last Admin Dose Admin Acetaminophen (Tylenol) 650 mg Q4H PRN ORAL Mild Pain/Temp > 100.5 08/02/16 11:30 09/01/16 11:29 08/02/16 12:19 Cefepime HCl/ Dextrose (Maxipime/D5W 50ml) 55 ml @ 110 mls/hr EVERY 12 HOURS IVPB 08/01/16 19:00 08/08/16 18:59 08/04/16 08:06 Dextrose STAT PRN IV Hypoglycemia 08/01/16 17:00 08/31/16 16:59 Heparin Sodium/ Sodium Chloride (Heparin 2000 units/Ns 1000ml premix) 2,000 unit ONCE ONCE INJ 08/04/16 07:30 08/04/16 07:31 UNV Insulin Aspart (NovoLOG) BEFORE MEALS AND HS SUBQ 08/01/16 21:00 08/31/16 20:59 08/04/16 06:18 Lactobacillus Acidophilus (Culturelle) 1 tab THREE TIMES A DAY ORAL 08/02/16 09:00 09/01/16 08:59 08/04/16 08:06 Lidocaine HCl (Xylocaine 1% 30ml) 30 ml ONCE ONCE INJ 08/04/16 07:30 08/04/16 07:31 UNV Lisinopril (Prinivil) 20 mg DAILY ORAL 08/02/16 09:00 09/01/16 08:59 08/04/16 08:05 Metformin HCl (Glucophage) 1,000 mg BID ORAL 08/01/16 18:00 08/31/16 17:59 08/04/16 08:06 Metoprolol Tartrate (Lopressor) 50 mg Q12HR ORAL 08/01/16 21:00 08/31/16 20:59 08/04/16 08:05 Metronidazole (Flagyl) 500 mg Q8HR ORAL 08/01/16 22:00 08/08/16 21:59 08/04/16 06:14 Sodium Bicarbonate (Sodium Bicarbonate) 50 ml ONCE ONCE IV 08/04/16 07:30 08/04/16 07:31 UNV Vancomycin HCl 1 ea 1 ea DAILY PRN MISC Per rx protocol 08/01/16 17:00 08/31/16 16:59 Vancomycin HCl/ Dextrose (Vancomycin/D5W 250ml) 250 ml @ 167 mls/hr Q12HR@1000,2200 IVPB 08/01/16 22:00 08/06/16 21:59 08/04/16 10:07 Warfarin Sodium (Coumadin per pharmacy) 1 ea DAILY PRN MISC Per rx protocol 08/01/16 17:00 08/31/16 16:59 Warfarin Sodium (Coumadin) 7.5 mg COUMADIN ORAL 08/01/16 20:00 08/31/16 19:59 08/03/16 18:31 MARIAN RICKETTS Aug 04, 2016 10:19
[2016-08-04 11:57] VITALS: BP 152/84
--- NOTE | 2016-08-04 12:49 | Podiatric Progress Note ---
Assessment/Plan Patient Faith White is a 71 year old female who was admitted on Aug 01, 2016 at 09: 41 with left foot infected ulcer and osteomyelitis Problems: (1) Diabetic foot infection (2) Diabetic foot ulcer (3) Osteomyelitis of ankle or foot, acute Assessment/Plan - Continue IV antibiotics per infectious disease recommendations. Awaiting PICC line placement. Culture grew proteus mirabilis and coag negative staph. Patient remains afebrile and without leukocytosis - Offload ulcer by walking on the heel - Continue daily dressing changes with packing the wound with 1/4 inch packing gauze and covering with adaptic, 4x4 gauze, and kerlix - Will continue to follow daily Subjective Reason for consult Left hallux infected ulcer and osteomyelitis Allergies: Coded Allergies: No Known Allergies (Verified , 12/22/10) Subjective Patient states she is doing well and has no complaints of nausea, vomiting, fevers, or chills. She has been elevating the foot and walking on the left heel Objective Exam Last 24 Hour Vital Signs Date Time Temp Pulse Resp B/P Pulse Ox O2 Delivery O2 Flow Rate FiO2 08/04/16 11:57 98.1 71 14 152/84 98 Room Air 08/04/16 08:05 70 151/79 08/04/16 08:05 151/79 08/04/16 08:01 97.7 70 14 151/79 100 Room Air 08/04/16 04:00 97.7 70 20 145/79 97 Room Air 08/04/16 00:00 97.9 70 20 132/74 98 Room Air 08/03/16 21:59 71 149/79 08/03/16 20:00 97.5 71 17 149/79 98 Room Air 08/03/16 16:42 98.2 70 14 136/65 98 Room Air Laboratory Tests Test 08/04/16 04:55 Prothrombin Time 29.8 SEC (9.30-11.50) H Prothromb Time International Ratio 2.8 (0.9-1.1) H Microbiology Date/Time Source Procedure Growth Status 08/01/16 09:21 Blood Blood Culture - Preliminary NO GROWTH AFTER 48 HOURS Resulted 08/01/16 23:00 Foot Left Gram Stain - Final Resulted 08/01/16 23:00 Wound Culture - Preliminary Proteus Mirabilis Staphylococcus Sp Coag Neg Resulted Exam Narrative Moderate serous drainage noted on dressings. The plantar wound probes to bone. There is no purulence noted. Malodor improved. The plantar wound tunnels proximally and laterally and is connected to a second wound on the lateral aspect of the left hallux. Mild surrounding erythema and edema which has improved since admission Zhang Vargas DPM Aug 04, 2016 12:48
[2016-08-04 16:00] VITALS: BP 152/84
[2016-08-04] MEDS: Warfarin Sodium 7.5mg ORAL SCH (16:56)
[2016-08-04] MEDS: cefTRIAXone 1 GM in D5W 55 ML IVPB SCH (16:57)
[2016-08-04 20:00] VITALS: BP 151/83
--- NOTE | 2016-08-04 21:57 | Progress Note ---
DATE: 08/03/2016 CARDIOLOGY PROGRESS NOTE SUBJECTIVE: The patient had a bone scan that is positive for acute osteomyelitis. The patient has no pain. Wound care is noted. Podiatry followup noted. OBJECTIVE: VITAL SIGNS: Blood pressure is 135/76, pulse 70, respirations 16, and afebrile. NECK: Supple. LUNGS: Clear. CARDIAC: Regular. Normal S1, paradoxically split S2. ABDOMEN: Soft. EXTREMITIES: Trace edema. Wound site is dressed. IMPRESSION: 1. Osteomyelitis. 2. Cellulitis. 3. Hypertensive heart disease. 4. AV gail ablation, 5. Paroxysmal atrial fibrillation. 6. Pacemaker dependent. 7. Abnormal mammogram. PLAN: 1. Antibiotics. 2. Wound care. 3. PICC line will be needed. 4. Continue current cardiovascular regimen including warfarin for cardioembolic prophylaxis with INR goal of 2 to 3. 5. Outpatient breast biopsy. Aron Barone M.D. DR: FREDI JOB#: [id number] CC:
[2016-08-05] VITALS: BP 140/78
--- NOTE | 2016-08-05 00:58 | Progress Note ---
DATE: 08/04/2016 CARDIOLOGY PROGRESS NOTE SUBJECTIVE: The patient is without pain. She is on IV antibiotics. Wound care noted. Cultures positive for Proteus and coagulase negative Staphylococcus. Bone scan notable for osteomyelitis. OBJECTIVE: VITAL SIGNS: Blood pressure 151/79, pulse 70, respiratory rate 14, and afebrile. NECK: Supple. LUNGS: Clear. CARDIAC: Regular. Normal S1 and S2. Paradoxically split S2. ABDOMEN: Soft. EXTREMITIES: Trace edema. LABORATORY DATA: Blood culture negative. INR 2.8. IMPRESSION: 1. Warfarin-associated coagulopathy. 2. Osteomyelitis foot ulcer with cellulitis. 3. Diabetes mellitus, on insulin. 4. Hypertensive heart disease. 5. Permanent pacemaker dependent. 6. AV gail ablation. 7. Paroxysmal atrial fibrillation. 8. hypertensive heart disease. PLAN: Await plan. Await PICC line. Antibiotics per Infectious Disease residential solar consultant. Wound care. We will consider antihypertensives if systolic range remains elevated. Aron Barone M.D. DR: NATASHA JOB#: [id number] CC:
[2016-08-05 04:00] VITALS: BP 151/92
[2016-08-05] MEDS: metroNIDAZOLE 500mg tab ORAL SCH (05:34)
[2016-08-05] MEDS ORDERED: Sodium Bicarbonate 8.4% 50ml Inj IV SCH (06:00)
[2016-08-05] MEDS ORDERED: Lidocaine 1% Plain 30 ml INJ SCH (06:00)
[2016-08-05] MEDS ORDERED: Heparin 2000 units/Ns 1000ml INJ SCH (06:00)
[2016-08-05] MEDS: NovoLOG Insulin Flexpen SUBQ SCH ×4 (06:30→21:31)
[2016-08-05] MEDS: Lactobacillus-GG tablet ORAL SCH ×3 (08:18→18:18)
[2016-08-05] MEDS: metFORMIN 500mg tab ORAL SCH ×2 (08:18→18:18)
[2016-08-05] MEDS: Lisinopril 20mg tab ORAL SCH (08:19)
[2016-08-05] MEDS: Metoprolol 50mg tab ORAL SCH ×2 (08:24→21:30)
[2016-08-05 08:30] VITALS: BP 161/82
--- NOTE | 2016-08-05 08:43 | Podiatric Progress Note ---
Assessment/Plan Patient Faith White is a 71 year old female who was admitted on Aug 01, 2016 at 09: 41 with left hallux ulcer and osteomyelitis Problems: (1) Diabetic foot ulcer (2) Osteomyelitis of ankle or foot, acute Assessment/Plan - PICC line planned today for a total of 6 weeks of IV antibiotics - Continue antibiotics per infectious disease specialist recommendations - Continue daily dressing changes with packing - Patient will need home health upon discharge for wound care and administration of IV antibiotics - Non weight bearing left forefoot Subjective Reason for consult Left hallux infected ulcer and osteomyelitis Allergies: Coded Allergies: No Known Allergies (Verified , 12/22/10) Subjective Patient states mild stomach cramping. No pain, nausea, vomiting, fevers, or chills Objective Exam Last 24 Hour Vital Signs Date Time Temp Pulse Resp B/P Pulse Ox O2 Delivery O2 Flow Rate FiO2 08/05/16 08:30 98.1 70 18 161/82 98 Room Air 08/05/16 08:24 70 161/82 08/05/16 08:19 161/82 08/05/16 04:00 97.7 70 20 151/92 97 Room Air 08/05/16 00:00 97.3 70 20 140/78 97 Room Air 08/04/16 22:13 70 151/83 08/04/16 20:00 97.7 70 20 151/83 96 Room Air 08/04/16 16:00 98.1 71 14 152/84 98 Room Air 08/04/16 11:57 98.1 71 14 152/84 98 Room Air Microbiology Date/Time Source Procedure Growth Status 08/01/16 09:21 Blood Blood Culture - Preliminary NO GROWTH AFTER 72 HOURS Resulted 08/01/16 23:00 Foot Left Gram Stain - Final Resulted 08/01/16 23:00 Wound Culture - Preliminary Proteus Mirabilis Staphylococcus Sp Coag Neg Resulted Exam Narrative Left plantar hallux ulcer is improving in quality. No purulence or malodor noted. wound probed to bone and communicates with another wound on the lateral aspect of the hallux Zhang Vargas DPM Aug 05, 2016 08:43
--- NOTE | 2016-08-05 11:11 | Infectious Diseases Prog Note ---
"Assessment/Plan Assessment/Plan antibiotics : vancomycin iv, ceftriaxone, flagyl A 1. left foot ulcer with proteus | coag neg staph osteomyelitis 2. DM 3. HTN P 1. continue vancomycin iv, ceftriaxone 37 more days 2. d/c flagyl 3. will follow up cultures Subjective ROS Limited/Unobtainable: Yes Allergies: Coded Allergies: No Known Allergies (Verified , 12/22/10) Objective Vital Signs Last 24 Hour Vital Signs Date Time Temp Pulse Resp B/P Pulse Ox O2 Delivery O2 Flow Rate FiO2 08/05/16 08:30 98.1 70 18 161/82 98 Room Air 08/05/16 08:24 70 161/82 08/05/16 08:19 161/82 08/05/16 04:00 97.7 70 20 151/92 97 Room Air 08/05/16 00:00 97.3 70 20 140/78 97 Room Air 08/04/16 22:13 70 151/83 08/04/16 20:00 97.7 70 20 151/83 96 Room Air 08/04/16 16:00 98.1 71 14 152/84 98 Room Air 08/04/16 11:57 98.1 71 14 152/84 98 Room Air Height (Feet): 6 Height (Inches): 0.00 Weight (Pounds): 250 Respiratory/Chest: lungs clear Cardiovascular: normal rate, regular rhythm, no gallop/murmur Abdomen: soft, non tender Extremities: no edema, other - left foot plantar ulcer LISA BERNARD Aug 05, 2016 11:11"
[2016-08-05] MEDS: Vancomycin 1gm/D5W 250ml IVPB SCH ×4 (11:33→21:32)
[2016-08-05] MEDS ORDERED: VANCOMYCIN1 GM/250 M IVPB (12:26)
[2016-08-05] MEDS ORDERED: CEFTRIAXONE1 G2 IV (12:26)
--- NOTE | 2016-08-05 12:27 | General Progress Note ---
Assessment/Plan Problem List: (1) Atrial fibrillation ICD Codes: I48.91 - Unspecified atrial fibrillation SNOMED: 01312840 (2) Diabetic foot infection ICD Codes: E11.69 - Type 2 diabetes mellitus with other specified complication ; L08.9 - Local infection of the skin and subcutaneous tissue, unspecified SNOMED: 769121742, 84936660 (3) Diabetic foot ulcer ICD Codes: E11.621 - Type 2 diabetes mellitus with foot ulcer; L97.509 - Non- pressure chronic ulcer of other part of unspecified foot with unspecified severity SNOMED: 207480095, [id number] Assessment/Plan iv abx per ID follow up cultures picc line care wound care cont cardiac rx dc planning once home iv arranged Subjective ROS Limited/Unobtainable: No Constitutional: Reports: malaise, weakness HEENT: Reports: no symptoms Cardiovascular: Reports: no symptoms Respiratory: Reports: no symptoms Gastrointestinal/Abdominal: Reports: no symptoms Genitourinary: Reports: no symptoms Neurologic/Psychiatric: Reports: no symptoms Endocrine: Reports: no symptoms Hematologic/Lymphatic: Reports: no symptoms Allergies: Coded Allergies: No Known Allergies (Verified , 12/22/10) All Systems: reviewed and negative except above Subjective no events. w/o complaints. denies pain. on iv abx. bone scan positive for osteomyelitis. s/p picc line Objective Last 24 Hour Vital Signs Date Time Temp Pulse Resp B/P Pulse Ox O2 Delivery O2 Flow Rate FiO2 08/05/16 08:30 98.1 70 18 161/82 98 Room Air 08/05/16 08:24 70 161/82 08/05/16 08:19 161/82 08/05/16 04:00 97.7 70 20 151/92 97 Room Air 08/05/16 00:00 97.3 70 20 140/78 97 Room Air 08/04/16 22:13 70 151/83 08/04/16 20:00 97.7 70 20 151/83 96 Room Air 08/04/16 16:00 98.1 71 14 152/84 98 Room Air Intake and Output 08/04/16 08/05/16 19:00 07:00 Intake Total 1645 ml 370 ml Balance 1645 ml 370 ml Intake Oral 1340 ml 120 ml IV Total 305 ml 250 ml # Voids 4 3 Height (Feet): 6 Height (Inches): 0.00 Weight (Pounds): 250 Objective General Appearance: WD/WN, alert Neck: supple Cardiovascular: regular rhythm Respiratory/Chest: lungs clear Abdomen: normal bowel sounds, non tender, soft, no organomegaly Edema: no edema noted Arm (L), no edema noted Arm (R), no edema noted Leg (L), no edema noted Leg (R), no edema noted Pedal (L), no edema noted Pedal (R), no edema noted Generalized Neurologic: roll hand II-XII grossly normal, no motor/sensory deficits, alert, oriented x 3, responsive LUCIANA HARDY Aug 05, 2016 12:27
[2016-08-05 12:32] VITALS: BP 154/86
--- NOTE | 2016-08-05 12:40 | Diagnostic Imaging Report ---
Indications: Infection requiring long-term IV antibiotics Technique: The procedure indications, risks, and alternatives were explained to the patient who understands and gives consent to proceed. Strict aseptic technique was utilized, including hand washing, use of hat and mask, use of sterile gown and gloves, sterile ultrasound gel and probe cover, prepping of right arm skin with 2% chlorhexidine solution, and application of full-body sterile barrier over this area. Skin and subcutaneous soft tissues were infiltrated with 1% lidocaine and sodium bicarbonate. A small dermatotomy was made, through which the larger of two patent, adequate size right brachial veins was punctured percutaneously under direct sonographic guidance with a 21-gauge needle. Exchange was made over a 0.018 inch guidewire for a 5 Malian peel-away sheath. When the guidewire could not be advanced centrally, a 5 [employer]ian Kumpe catheter was advanced through the sheath over the guidewire into the right axillary vein. Guidewire removed, nonionic iodine contrast injected, digital subtraction images of the right axillary, subclavian veins obtained. Guidewire introduced, than catheter removed. A [employer] Power-PICC 5 Malian dual lumen central venous catheter was cut to appropriate length, then advanced through the sheath over the guidewire under direct fluoroscopic guidance into the peripheral aspect of the right subclavian vein. Guidewire and sheath were removed. Both catheter ports were aspirated, then flushed with heparinized saline. Final image was obtained. Catheter was secured the skin with adhesive dressing. Patient tolerated procedure well without immediate complications. Total fluoroscopy time: 1.5 minutes. Dose-area product: 120 dGy-cm2 Findings: Right subclavian vein tapers to occlusion in its mid section. Multiple well formed collateral venous channels arising from its and the right axillary vein peripheral to point of occlusion, then drained centrally to the right internal jugular vein and mediastinum. Final image demonstrates tip of the central venous catheter within the peripheral aspect of the right subclavian vein, peripheral to point of occlusion, 30 cm in from the skin. Both ports aspirate and flush freely. IMPRESSION:? Chronic occlusion of right subclavian vein, well collateralized. If clinically indicated, percutaneous revascularization may be attempted. Placement of peripherally inserted central venous catheter via right brachial vein, , tip in right subclavian vein, working well.
[2016-08-05 16:00] VITALS: BP 148/80
[2016-08-05] MEDS: cefTRIAXone 1 GM in D5W 55 ML IVPB SCH (16:29)
[2016-08-05] MEDS: Warfarin Sodium 7.5mg ORAL SCH (17:39)
[2016-08-05 18:18] LABS: INR 3.9 (0.9-1.1); PROTHROMBIN TIME 41.5 SEC (9.30-11.50)
[2016-08-05 19:00] VITALS: BP 142/82
[2016-08-06] VITALS: BP 149/90
--- NOTE | 2016-08-06 01:47 | Progress Note ---
DATE: 08/05/2016 SUBJECTIVE: The patient is very tearful and distraught. She cannot afford to pay for her home antibiotics. There is a co-pay with her Medicare. The patient has a PICC line in place. OBJECTIVE: VITAL SIGNS: Blood pressure 161/82, heart rate 70, and respiratory rate 18. NECK: Supple. LUNGS: Clear. CARDIAC: Regular. Normal S1. Paradoxically split S2. ABDOMEN: Soft. EXTREMITIES: Foot wound is dressed. IMPRESSION: 1. Osteomyelitis. 2. Cellulitis. 3. Diabetic foot ulcer. 4. Insulin-requiring diabetes mellitus. 5. Accelerated hypertension due to mood. 6. Paroxysmal atrial fibrillation. 7. Warfarin-associated coagulopathy. 8. Atrioventricular gail ablation with pacemaker. PLAN: We will need to consider detention facility for antibiotics. We will monitor blood pressure and adjust therapy accordingly. We will recheck laboratory studies. Aron Barone M.D. DR: Channing JOB#: [id number] CC:
[2016-08-06 04:00] VITALS: BP 153/89
[2016-08-06] MEDS: NovoLOG Insulin Flexpen SUBQ SCH ×3 (06:16→16:30)
[2016-08-06 08:00] VITALS: BP 139/80
[2016-08-06] MEDS: Metoprolol 50mg tab ORAL SCH (09:23)
[2016-08-06] MEDS: Lisinopril 20mg tab ORAL SCH (09:24)
[2016-08-06] MEDS: metFORMIN 500mg tab ORAL SCH ×2 (09:24→17:26)
[2016-08-06] MEDS: Lactobacillus-GG tablet ORAL SCH ×3 (09:24→17:26)
--- NOTE | 2016-08-06 09:33 | Podiatric Progress Note ---
Assessment/Plan Patient Faith White is a 71 year old female who was admitted on Aug 01, 2016 at 09: 41 with left hallux infected ulcer and osteomyelitis Problems: (1) Diabetic foot infection (2) Diabetic foot ulcer (3) Osteomyelitis of ankle or foot, acute Assessment/Plan - Continue IV antibiotics per infectious disease specialist recommendations - Patient has been working with the bilingual patient support caseworker and states there is some difficulty in finding home health care that she can afford. Patient is amenable to going to a SNF if it has WIFI capability since she does not want to loose her job. She is able to work remotely online - Continue daily dressing changing with packing the wound - Non weight bearing left forefoot Subjective Reason for consult Left hallux infected ulcer and osteomyelitis Allergies: Coded Allergies: No Known Allergies (Verified , 12/22/10) Subjective Patient states that there is some difficulty with finding home health that she can afford. Additionally, patient states that she does not want to loose her job if she goes to a facility for continued care. 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 No current pain , nausea, vomiting, fevers, or chills reported. Objective Exam Last 24 Hour Vital Signs Date Time Temp Pulse Resp B/P Pulse Ox O2 Delivery O2 Flow Rate FiO2 08/06/16 08:00 97.7 70 22 139/80 99 Room Air 08/06/16 04:00 98.1 72 20 153/89 98 Room Air 08/06/16 00:00 97.2 70 20 149/90 99 Room Air 08/05/16 21:30 70 142/82 08/05/16 19:00 97.5 70 20 142/82 97 Room Air 08/05/16 16:00 98.1 70 20 148/80 96 Room Air 08/05/16 12:32 97.7 70 18 154/86 99 Room Air Laboratory Tests Test 08/05/16 17:20 Prothrombin Time 41.5 SEC (9.30-11.50) H Prothromb Time International Ratio 3.9 (0.9-1.1) H Imaging Procedure: NM Bone Scan 3-Phase Indications: Diabetic ulcer plantar surface left hallux Technique: 21.3 mCi 99M technetium-MDP administered intravenously. Planar imaging of the distal legs and feet performed in immediate serial blood flow, immediate static blood pool (multi-planar), and 3 hour delayed (multiplanar) phases. Findings: Comparison: Left foot radiographs 08/01/2016 Blood flow, pool, and delayed images demonstrate diffusely increased activity throughout the distal aspect of left leg and left foot with superimposed focal increased activity in the left hallux. On delayed images, this localizes throughout the left first distal and proximal phalanges, head of left first metatarsal. Small focus of mildly increased activity is present in the left fifth toe on delayed imaging with only questionable increased activity on blood pool and no obvious focal hyperemia on blood flow images. IMPRESSION: Findings compatible with acute osteomyelitis involving the left first metatarsal head, entire left first proximal and distal phalanges Mild focal increased activity left fifth toe on delayed imaging, may be degenerative. Correlate clinically. Microbiology Date/Time Source Procedure Growth Status 08/01/16 09:21 Blood Blood Culture - Preliminary NO GROWTH AFTER 4 DAYS Resulted 08/01/16 23:00 Foot Left Gram Stain - Final Resulted 08/01/16 23:00 Wound Culture - Preliminary Proteus Mirabilis Staphylococcus Sp Coag Neg Resulted Exam Narrative Left plantar hallux ulceration improving in quality. There is no purulence or malodor noted today. The plantar wound tunnels and communicates with another wound on the lateral aspect of the hallux. The edema and erythema at the toe continues to improve Zhang Vargas DPM Aug 06, 2016 09:33
[2016-08-06] MEDS: Vancomycin 1gm/D5W 250ml IVPB SCH ×2 (09:34)
[2016-08-06 10:06] LABS: BASOPHILS % (AUTO) 0.7 % (0.0-2.0); EOSINOPHILS % (AUTO) 3.3 % (0.0-3.0); LYMPHOCYTES % (AUTO) 20.9 % (20.0-45.0); MEAN CORPUSCULAR HEMOGLOBIN 29.7 PG (27.0-31.0); MEAN CORPUSCULAR HGB CONC 32.3 G/DL (32.0-36.0); MEAN CORPUSCULAR VOLUME 92 FL (80-99); MEAN PLATELET VOLUME 5.3 FL (6.5-10.1); MONOCYTES % (AUTO) 9.1 % (1.0-10.0); NEUTROPHILS % (AUTO) 65.9 % (45.0-75.0); PLATELET COUNT 288 K/UL (150-450); RED BLOOD COUNT 3.62 M/UL (4.20-5.40); RED CELL DISTRIBUTION WIDTH 13.5 % (11.6-14.8)
[2016-08-06 10:15] LABS: PROTHROMBIN TIME 53.5 SEC (9.30-11.50)
[2016-08-06 10:16] LABS: ALANINE AMINOTRANSFERASE 19 U/L (3-33); ALBUMIN/GLOBULIN RATIO 0.6 (1.0-2.7); ANION GAP 13 (5-15); ASPARTATE AMINO TRANSFERASE 56 U/L (5-40); CALCIUM 8.3 mg/dL (8.6-10.2); CARBON DIOXIDE 23 mEQ/L (20-30); CHLORIDE 102 mEQ/L (98-107); CREATININE 0.7 mg/dL (0.5-0.9); GLOMERULAR FILTRATION RATE > 60 mL/min (>60); HEMOLYSIS 1; MAGNESIUM 1.5 mg/dL (1.7-2.5); POTASSIUM 4.1 mEQ/L (3.4-4.9); SODIUM 138 mEQ/L (135-145); TOTAL PROTEIN 7.3 g/dL (6.6-8.7)
--- NOTE | 2016-08-06 11:15 | Infectious Diseases Prog Note ---
"Assessment/Plan Assessment/Plan antibiotics : vancomycin iv, ceftriaxone A 1. left foot ulcer with proteus | coag neg staph osteomyelitis 2. DM 3. HTN P 1. continue vancomycin iv, ceftriaxone 36 more days 2. will follow up cultures Subjective ROS Limited/Unobtainable: Yes Allergies: Coded Allergies: No Known Allergies (Verified , 12/22/10) Objective Vital Signs Last 24 Hour Vital Signs Date Time Temp Pulse Resp B/P Pulse Ox O2 Delivery O2 Flow Rate FiO2 08/06/16 09:24 139/80 08/06/16 09:23 70 139/80 08/06/16 08:00 97.7 70 22 139/80 99 Room Air 08/06/16 04:00 98.1 72 20 153/89 98 Room Air 08/06/16 00:00 97.2 70 20 149/90 99 Room Air 08/05/16 21:30 70 142/82 08/05/16 19:00 97.5 70 20 142/82 97 Room Air 08/05/16 16:00 98.1 70 20 148/80 96 Room Air 08/05/16 12:32 97.7 70 18 154/86 99 Room Air Height (Feet): 6 Height (Inches): 0.00 Weight (Pounds): 250 Respiratory/Chest: lungs clear Cardiovascular: normal rate, regular rhythm, no gallop/murmur Abdomen: soft, non tender Extremities: no edema, other - left foot in dressings Laboratory Tests Test 08/05/16 17:20 08/06/16 09:35 Prothrombin Time 41.5 SEC (9.30-11.50) H 53.5 SEC (9.30-11.50) H Prothromb Time International Ratio 3.9 (0.9-1.1) H 5.0 (0.9-1.1) H White Blood Count 6.0 K/UL (4.8-10.8) Red Blood Count 3.62 M/UL (4.20-5.40) L Hemoglobin 10.7 G/DL (12.0-16.0) L Hematocrit 33.2 % (37.0-47.0) L Mean Corpuscular Volume 92 FL (80-99) Mean Corpuscular Hemoglobin 29.7 PG (27.0-31.0) Mean Corpuscular Hemoglobin Concent 32.3 G/DL (32.0-36.0) Red Cell Distribution Width 13.5 % (11.6-14.8) Platelet Count 288 K/UL (150-450) Mean Platelet Volume 5.3 FL (6.5-10.1) L Neutrophils (%) (Auto) 65.9 % (45.0-75.0) Lymphocytes (%) (Auto) 20.9 % (20.0-45.0) Monocytes (%) (Auto) 9.1 % (1.0-10.0) Eosinophils (%) (Auto) 3.3 % (0.0-3.0) H Basophils (%) (Auto) 0.7 % (0.0-2.0) Sodium Level 138 mEQ/L (135-145) Potassium Level 4.1 mEQ/L (3.4-4.9) Chloride Level 102 mEQ/L (98-107) Carbon Dioxide Level 23 mEQ/L (20-30) Anion Gap 13 (5-15) Blood Urea Nitrogen 5 mg/dL (7-23) L Creatinine 0.7 mg/dL (0.5-0.9) Estimat Glomerular Filtration Rate > 60 mL/min (>60) Glucose Level 178 mg/dL (74-106) H Calcium Level 8.3 mg/dL (8.6-10.2) L Magnesium Level 1.5 mg/dL (1.7-2.5) L Total Bilirubin 0.3 mg/dL (0.0-1.2) Aspartate Amino Transf (AST/SGOT) 56 U/L (5-40) H Alanine Aminotransferase (ALT/SGPT) 19 U/L (3-33) Alkaline Phosphatase 88 U/L (35-104) Total Protein 7.3 g/dL (6.6-8.7) Albumin 2.8 g/dL (3.5-5.2) L Globulin 4.5 g/dL Albumin/Globulin Ratio 0.6 (1.0-2.7) L LISA BERNARD Aug 06, 2016 11:15"
[2016-08-06 12:00] VITALS: BP 153/63
[2016-08-06 16:00] VITALS: BP 148/78
[2016-08-06] MEDS: cefTRIAXone 1 GM in D5W 55 ML IVPB SCH (17:24)
[2016-08-06] MEDS ORDERED: NS 275ml ONE (19:39)
[2016-08-06] MEDS ORDERED: Tubing IV Secondary IV ONE (19:39)
--- NOTE | 2016-08-07 03:58 | Progress Note ---
DATE: 08/06/2016 CARDIOLOGY PROGRESS NOTE SUBJECTIVE: The patient has no chest pain and no shortness of breath. She denies foot pain. A PICC line was placed yesterday for long-term antibiotics. OBJECTIVE: VITAL SIGNS: Blood pressure is 148/78, pulse rate 70, respiratory rate 20, and afebrile. NECK: Supple. LUNGS: Clear. CARDIAC: Irregularly irregular. Normal S1, paradoxically split S2. ABDOMEN: Soft. EXTREMITIES: Trace edema. Foot wound is dressed. PICC line site with no erythema or warmth. LABORATORY DATA: INR is over 5. IMPRESSION: 1. Osteomyelitis. 2. Diabetes mellitus type 2. 3. Coagulopathy due to warfarin. 4. Paroxysmal atrial fibrillation. 5. Permanent pacemaker dependent, status post arteriovenous gail ablation. 6. Hypertensive heart disease with better blood pressure control now. PLAN: Hold warfarin and re-dose for INR goal of 2 to 3. Expect decrease warfarin, meanwhile on IV antibiotics. Long-term antibiotics per Infectious Disease quantitative consultant x4 to 6 weeks. Titrate antihypertensives based on clinical parameters. Aron Barone M.D. DR: EUSEBIA/crow JOB#: [id number] CC:
--- NOTE | 2016-08-07 05:57 | Discharge Summary ---
DATE OF ADMISSION: 08/01/2016 DATE OF DISCHARGE: 08/06/2016 ADMISSION DIAGNOSES: 1. Right foot diabetic ulcer. 2. Hypertension. 3. Conduction system disease, status post pacemaker. 4. Paroxysmal atrial fibrillation. DISCHARGE DIAGNOSES: 1. Right foot diabetic ulcer. 2. Hypertension. 3. Conduction system disease, status post pacemaker. 4. Paroxysmal atrial fibrillation. HOSPITAL COURSE: The patient is a very pleasant female, who presents with right first toe diabetic ulcer. She was seen by Podiatry. was able to probe down to the bone. She had a bone scan that was positive for osteomyelitis. The patient had PICC line placed. The initial plan was for the patient to go home, but the patient could not afford the co-pay for her antibiotic. She will be discharged to a [facility] facility to complete her IV antibiotic therapy. DISCHARGE MEDICATIONS: Please see discharge medication list for discharge medications. DIET: Cardiac, diabetic diet. ACTIVITY: Ad-vandana. FOLLOWUP: The patient will follow up in one to two days at the [facility] facility. Paul Bui M.D. DR: Elana JOB#: [id number] CC:
--- NOTE | 2016-08-10 17:22 | Diagnostic Imaging Report ---
APPROVED REPORT CPT Code: 54970 Symptoms Non-healing Ulcer : Left BILATERAL: Common femoral artery waveform analysis is within normal limits at rest. Color flow duplex sonography reveals patency of the superficial femoral, popliteal, and tibial arteries, there is no evidence of stenosis or occlusion within these segments. Doppler tibial artery waveform analysis is within normal limits, bilaterally. There is no evidence of significant arterial occlusive disease, bilaterally.
== END 2016-08-06 19:40 | DRG 629 ==
LOC: EMR 08:59 → EDBEDREQ 09:36 → 4E 09:41 → EDBEDREQ 09:51 → 4E 16:58
PROC: 0QBR0ZZ Excision of Left Toe Phalanx, Open Approach (ICD-10-PCS; principal; 2016-08-01)
PROC: 05H533Z Insertion of Infusion Device into Right Subclavian Vein, Percutaneous Approach (ICD-10-PCS; 2016-08-05)
PROC: B516ZZA Fluoroscopy of Right Subclavian Vein, Guidance (ICD-10-PCS; 2016-08-05)
DX: E11.69 Type 2 diabetes mellitus with other specified complication (principal); I50.32 Chronic diastolic (congestive) heart failure; M86.172 Other acute osteomyelitis, left ankle and foot; E11.621 Type 2 diabetes mellitus with foot ulcer; E11.22 Type 2 diabetes mellitus with diabetic chronic kidney disease; I13.0 Hypertensive heart and chronic kidney disease with heart failure and stage 1 through stage 4 chronic kidney disease, or unspecified chronic kidney disease; L97.429 Non-pressure chronic ulcer of left heel and midfoot with unspecified severity; L03.116 Cellulitis of left lower limb; E11.40 Type 2 diabetes mellitus with diabetic neuropathy, unspecified; N18.9 Chronic kidney disease, unspecified; I48.0 Paroxysmal atrial fibrillation; R92.8 Other abnormal and inconclusive findings on diagnostic imaging of breast; B95.7 Other staphylococcus as the cause of diseases classified elsewhere; B96.4 Proteus (mirabilis) (morganii) as the cause of diseases classified elsewhere; Z86.711 Personal history of pulmonary embolism; Z95.0 Presence of cardiac pacemaker; Z79.4 Long term (current) use of insulin; Z79.01 Long term (current) use of anticoagulants; Z86.718 Personal history of other venous thrombosis and embolism; D64.9 Anemia, unspecified
CPT/HCPCS: 36415; 36569; 78315; 80053; 80202; 82553; 82962; 83605; 83735; 84443; 85025; 85610; 87040; 87070; 87181; 87205; 93925; J1815

== ENCOUNTER 2016-10-16 09:12 | Outpatient (RCR) | payer MEDICARE ==
[~2016-10-16 09:12] MED LIST changes: +CEFTRIAXONE1 G2 IV; +LISINOPRIL20 MG ORAL; +VANCOMYCIN1 GM/250 M IVPB
== END 2016-10-18 | disposition home or self-care (01) ==
LOC: WCC 09:12
DX: E08.43 Diabetes mellitus due to underlying condition with diabetic autonomic (poly)neuropathy (principal); E08.621 Diabetes mellitus due to underlying condition with foot ulcer; M54.9 Dorsalgia, unspecified; Z90.49 Acquired absence of other specified parts of digestive tract; I10 Essential (primary) hypertension; Z86.73 Personal history of transient ischemic attack (TIA), and cerebral infarction without residual deficits; I51.9 Heart disease, unspecified
CPT/HCPCS: 15275; Q4132

== ENCOUNTER 2016-10-22 08:54 | Outpatient (RCR) | payer MEDICARE ==
[~2016-10-22] VITALS: Ht 182.9 cm; Wt 109.8 kg
[2016-11-01] MEDS ORDERED: Neosporin Oint 15gm TOPIC ONE (10:30)
== END 2016-11-17 | disposition home or self-care (01) ==
LOC: WCC 08:54
DX: L97.504 Non-pressure chronic ulcer of other part of unspecified foot with necrosis of bone (principal); E11.621 Type 2 diabetes mellitus with foot ulcer; E08.43 Diabetes mellitus due to underlying condition with diabetic autonomic (poly)neuropathy; Z90.49 Acquired absence of other specified parts of digestive tract; I51.9 Heart disease, unspecified; I10 Essential (primary) hypertension; Z86.73 Personal history of transient ischemic attack (TIA), and cerebral infarction without residual deficits
CPT/HCPCS: 11042; G0463

== ENCOUNTER 2016-11-27 09:00 | Outpatient (RCR) | payer MEDICARE | END 2016-12-18 | disposition home or self-care (01) | LOC: WCC 09:00 | DX: E11.42 Type 2 diabetes mellitus with diabetic polyneuropathy (principal); E08.621 Diabetes mellitus due to underlying condition with foot ulcer; E08.43 Diabetes mellitus due to underlying condition with diabetic autonomic (poly)neuropathy; Z90.49 Acquired absence of other specified parts of digestive tract; I10 Essential (primary) hypertension; Z86.73 Personal history of transient ischemic attack (TIA), and cerebral infarction without residual deficits | CPT/HCPCS: 11055 ==